=== PATIENT | male | born 1990 | race Caucasian/White ===

== ENCOUNTER 2016-12-09 10:01 | Emergency (ER) | payer OTHER ==
[~2016-12-09] VITALS: Ht 167.6 cm; Wt 76.6 kg
[2016-12-09 11:08] LABS: ASPARTATE AMINO TRANSFERASE 17 U/L (15-37); BLOOD UREA NITROGEN 14 mg/dL (7-18)
[2016-12-09 11:51] VITALS: BP 102/62
== END 2016-12-09 11:53 | disposition home or self-care (01) ==
LOC: ED 11:40
DX: K21.0 Gastro-esophageal reflux disease with esophagitis (principal); R07.9 Chest pain, unspecified; M25.50 Pain in unspecified joint
CPT/HCPCS: 36415; 80053; 81003; 85025; 93005; 99285

== ENCOUNTER → 2017-04-21 | Outpatient (CLI) | payer OTHER | END | disposition home or self-care (01) | LOC: CFH 15:28 | PROVIDERS: ATTEND Neurological Surgery | DX: M50.321 Other cervical disc degeneration at C4-C5 level (principal); M50.221 Other cervical disc displacement at C4-C5 level; R51 Headache | CPT/HCPCS: 72050; 72141 ==

== ENCOUNTER → 2017-06-24 | Outpatient (CLI) | payer OTHER | END | disposition home or self-care (01) | LOC: RAD 11:38 | PROVIDERS: ATTEND Otolaryngology Facial Plastic Surgery | DX: H93.19 Tinnitus, unspecified ear (principal); R42 Dizziness and giddiness | CPT/HCPCS: 70553 ==

== ENCOUNTER 2017-07-22 18:07 | Emergency (ER) | payer OTHER ==
[~2017-07-22] VITALS: Ht 167.6 cm; Wt 81.3 kg
[2017-07-22 18:09] VITALS: BP 134/76
== END 2017-07-22 21:09 | disposition home or self-care (01) ==
LOC: ED 20:40
DX: F41.1 Generalized anxiety disorder (principal); K21.9 Gastro-esophageal reflux disease without esophagitis
CPT/HCPCS: 71020; 93005; 99284

== ENCOUNTER → 2017-08-26 | Outpatient (CLI) | payer OTHER | END | disposition home or self-care (01) | LOC: CFH 12:56 | PROVIDERS: ATTEND Otolaryngology Facial Plastic Surgery | DX: R42 Dizziness and giddiness (principal) | CPT/HCPCS: 70480 ==

== ENCOUNTER 2017-08-27 20:59 | Emergency (ER) | payer OTHER ==
[~2017-08-27] VITALS: Ht 167.6 cm; Wt 82.6 kg
[2017-08-27] MEDS ORDERED: LORazepam 1MG TABLET PO ONE (22:00)
[2017-08-27] MEDS ORDERED: ASPIRIN 81 MG TABLET CHEW PO ONE (22:00)
[2017-08-27 22:15] LABS: BASOPHILS # (AUTO) 0.04 x10^3/uL (0-0.1); BASOPHILS % (AUTO) 1 % (0-1); EOSINOPHILS # (AUTO) 0.15 x10^3/uL (0-0.4); EOSINOPHILS % (AUTO) 2 % (1-7); LYMPHOCYTES % (AUTO) 38 % (22-44); MD NO; MEAN CORPUSCULAR HEMOGLOBIN 30.7 pg (27.5-34.5); MEAN CORPUSCULAR HGB CONC 34.3 g/dL (33.2-36.2); MEAN CORPUSCULAR VOLUME 89.5 fL (81-97); MEAN PLATELET VOLUME 7.9 fL (7.4-10.4); MONOCYTES # (AUTO) 0.59 x10^3/uL (0.2-0.8); MONOCYTES % (AUTO) 8 % (2-9); NEUTROPHILS # (AUTO) 4.12 x10^3/uL (1.8-6.8); NEUTROPHILS % (AUTO) 52 % (42-75); PLATELET COUNT 270 x10^3/uL (130-400); RED BLOOD COUNT 5.07 x10^6/uL (4.38-5.82); RED CELL DISTRIBUTION WIDTH 13.4 % (9.4-14.8)
[2017-08-27 22:23] LABS: ALANINE AMINOTRANSFERASE 66 U/L (12-78); ALBUMIN 3.8 g/dL (3.4-5.0); ANION GAP 5 mmol/L (5-15); CALCIUM 8.5 mg/dL (8.5-10.1); CHLORIDE 106 mmol/L (98-107); CREATININE 0.81 mg/dL (0.7-1.3)
[2017-08-27] MEDS ORDERED: LORazepam 1MG TABLET ONE (22:23)
[2017-08-27] MEDS ORDERED: ASPIRIN 81 MG TABLET CHEW ONE (22:23)
[2017-08-27 22:26] VITALS: BP 123/78
[2017-08-27 22:27] LABS: ALKALINE PHOSPHATASE 90 U/L (45-117); BILIRUBIN,TOTAL 0.4 mg/dL (0.2-1.0); TOTAL PROTEIN 7.3 g/dL (6.4-8.2); TROPONIN I < 0.015 ng/mL (0.000-0.045)
== END 2017-08-27 23:25 | disposition home or self-care (01) ==
LOC: ED 21:40
DX: R07.89 Other chest pain (principal); F41.1 Generalized anxiety disorder
CPT/HCPCS: 36415; 71020; 80053; 84484; 85025; 93005; 99285

== ENCOUNTER → 2017-10-06 | Outpatient (CLI) | payer OTHER | END | disposition home or self-care (01) | LOC: CFH 06:56 | PROVIDERS: ATTEND Internal Medicine Cardiovascular Disease | DX: I08.1 Rheumatic disorders of both mitral and tricuspid valves (principal); R06.02 Shortness of breath | CPT/HCPCS: 93306 ==